=== PATIENT | male | born 1985 | race Caucasian/White ===

== ENCOUNTER 2016-11-04 18:18 | Emergency (ER) | payer OTHER ==
--- NOTE | ~2016-11-04 | CR72 ---
[facility]. [facility] A Service of [facility] & [facility] RADIOLOGY TEXT RESULTS PATIENT: RED LAU LOCATION: SED : 85 UNIT #: [id number] AGE: [address]: Shaunna Wells MD SEX: M ORDER DR: [id number] [place] [id number] E MR#: [id number] Acc #: [id number] NAME: RED LAU : 1985 SEX: M STUDY DATE/TIME: 11/04/2016 18:59 UNIT: SED ROOM: STUDY DESCRIPTION: CR Chest Single View Portable Attending Physician: Shaunna Wells M.D. Referring Physician: Bhaskar Stanley M.D. Ordering Physician: Bhaskar Stanley M.D. Primary Care Physician: [facility] MEDICAL IMAGING REPORT This report is preliminary unless electronic signature is present. EXAM Portable chest HISTORY Shortness of air, headache, dyspnea. COMPARISON 11/24/2014 FINDINGS A single AP portable view of the chest shows both lungs to be clear. The heart is normal in size. The mediastinal contour is normal. No significant bone abnormalities are seen. IMPRESSION Normal portable chest. Dictated by... Jay Jones M.D. THIS IS AN ELECTRONICALLY VERIFIED REPORT Jay Jones M.D. at 11/07/2016 6:07 AM TOMASA/santa TD: 11/04/2016 23:30 JOB #: [id number] MEDICAL IMAGING REPORT Page 1 of 1
--- NOTE | ~2016-11-04 | EKG ---
PATIENT: RED LAU UNIT #: [id number] Ventricular Rate: 65 BPM Atrial Rate: 65 BPM P-R Interval: 112 ms QRS Duration: 80 ms Q-T Interval: 386 ms QTC Calculation(Bezet): 401 ms P Jarratt: 34 degrees Calculated R Jarratt: 70 degrees Calculated T Jarratt: 68 degrees Diagnosis Line: Normal sinus rhythm with sinus arrhythmia Diagnosis Line: Normal ECG Diagnosis Line: When compared with ECG of 24-NOV-2014 16:29, Diagnosis Line: No significant change was found Diagnosis Line: Confirmed by GALINA MORALES MD ([id number]) on Diagnosis Line: 11/09/2016 8:50:20 AM INTERPRETING MD: CARMEN BELLA
[~2016-11-04 18:18] MED LIST: ABILIFY20 MG PO; ALBUTEROL17 GM INH; AMOXICILLIN PO; ATARAX PO; NAPROSYN500 MG PO; NORFLEX100 M1 PO; PREDNISONE PO; RISPERDAL2 MG PO; RISPERIDONE PO; ROBAXIN 750750 M1 PO; VOLTAREN50 MG PO; ZITHROMAX PO
[2016-11-04] MEDS ORDERED: LAMICTAL (18:22)
[2016-11-04] MEDS ORDERED: GEODON20 MG (18:25)
[2016-11-04 19:11] LABS: BASOPHIL# 0.1 X10e3 (0-0.3); BASOPHIL% 0.4 % (0-2.5); DIFF IND NO; EOSINOPHIL# 0.2 X10e3 (0-0.7); HEMATOCRIT 51.1 % (38.0-50.0); HEMOGLOBIN 17.5 gm/dL (13.0-16.0); LYMPHOCYTE# 3.1 X10e3 (1.0-3.5); LYMPHOCYTE% 17.6 % (17.0-45.0); MEAN CELL VOLUME 85.8 FL (83-96); MEAN CORPUSCULAR HEMOGLOBIN 29.3 PG (28-34); MEAN CORPUSCULAR HGB CONC 34.2 g/dL (30-36); MEAN PLATELET VOLUME 8.8 FL (6.5-11.5); MONOCYTE# 1.2 X10e3 (0-1.0); MONOCYTE% 6.7 % (3.0-12.0); NEUTROPHIL# 12.9 X10e3 (1.5-7.1); NEUTROPHIL% 74.3 % (40-75); PLATELET COUNT 246 X10e3 (140-420); RED BLOOD COUNT 5.96 X10e (3.90-5.60); WHITE BLOOD COUNT 17.4 X10e3 (4.0-10.5)
[2016-11-04 19:22] LABS: INR 1.1; PROTHROMBIN TIME (PATIENT) 12.8 SECONDS (9.5-12.4)
[2016-11-04 19:29] LABS: POC - CKMB <1.0 ng/mL (0.0-7.9); POC - TROPONIN <0.05 ng/mL (<=0.05)
[2016-11-04 19:31] LABS: ALBUMIN SERUM 4.1 g/dL (3.5-5.0); BILIRUBIN, DIRECT 0.1 mg/dL (0.0-0.2); BILIRUBIN,INDIRECT 0.3 mg/dL (0.0-0.9); BILIRUBIN,TOTAL 0.4 mg/dL (0.2-2.0); BUN/CREATININE RATIO 12.22; CALCIUM SERUM 9.2 mg/dL (8.4-10.2); CREATININE SERUM 0.9 mg/dL (0.6-1.4); GLOM FILT RATE Estimated 113.4 mL/min (>60); POTASSIUM 3.9 mmol/L (3.5-5.1); PROTEIN TOTAL SERUM 7.6 g/dL (6.0-8.3)
== END 2016-11-04 21:57 | disposition home or self-care (01) ==
LOC: SED 18:18
PROVIDERS: Emergency Medicine; Student in an Organized Health Care Education/Training Program
DX: R09.1 Pleurisy (principal); R06.02 Shortness of breath; F15.10 Other stimulant abuse, uncomplicated
CPT/HCPCS: 36415; 71010; 80048; 80076; 82553; 83880; 84484; 85025; 85379; 85610; 93005; 96361; 96374; 99284; J2060